=== PATIENT | female | born 1975 | race Caucasian/White ===

== ENCOUNTER → 2019-01-19 | Outpatient (CLI) | payer OTHER ==
[~2019-01-19] MED LIST: CATAPRES-TTS 10.1 MG TD; CELEXA40 MG PO; CLEOCIN HCL300 MG PO; FLEXERIL PO; IBUPROFEN 600600 M1 PO; MELOXICAM7.5 MG; NOHOMEMEDICATIONS; NORCO 5-325 TA1 EACH PO; VICODIN 5-5001 EACH PO
== END ==
LOC: M.RAD 11:40
DX: S09.93XA Unspecified injury of face, initial encounter (principal); Z88.0 Allergy status to penicillin; Z88.8 Allergy status to other drugs, medicaments and biological substances; Z88.2 Allergy status to sulfonamides; Z91.011 Allergy to milk products; Z91.018 Allergy to other foods; X58.XXXA Exposure to other specified factors, initial encounter; Y93.89 Activity, other specified; Y92.89 Other specified places as the place of occurrence of the external cause; Y99.8 Other external cause status

== ENCOUNTER → 2020-11-12 | Outpatient (CLI) | payer OTHER ==
[~2020-11-12] MED LIST changes: +AIMOVIG AU70 MG/1 ML; +ALPRAZOLAM 0.0.25 M1 PO; +AMITRIPTYLINE H75 M2 PO; +BUSPIRONE HCL15 MG PO; +CYMBALTA60 MG PO; +GABAPENTIN600 M1 PO; +IRON PO; +MAGNESIUM PO; +OMEPRAZOLE 20 M20 M1 PO; +SUMATRIPTAN PO; +TOPROL XL25 MG PO; +TRAZODONE PO; +VITAMIN B-125000 MCG SUBLING
== END ==
LOC: M.PC 11:27
PROVIDERS: ATTEND Anesthesiology Pain Medicine
DX: G43.909 Migraine, unspecified, not intractable, without status migrainosus (principal); F41.9 Anxiety disorder, unspecified; F32.9 Major depressive disorder, single episode, unspecified; M79.7 Fibromyalgia; I10 Essential (primary) hypertension; M19.90 Unspecified osteoarthritis, unspecified site

== ENCOUNTER → 2021-02-20 | Outpatient (CLI) | payer OTHER ==
[~2021-02-20] MED LIST changes: +AMITRIPTYLINE100 MG PO; +HYDROCODON-ACE1 EAC7 PO
== END ==
LOC: M.PC 08:30
PROVIDERS: ATTEND Anesthesiology Pain Medicine
DX: S69.91XA Unspecified injury of right wrist, hand and finger(s), initial encounter (principal); G43.909 Migraine, unspecified, not intractable, without status migrainosus; F41.8 Other specified anxiety disorders; M79.7 Fibromyalgia; I10 Essential (primary) hypertension; M19.90 Unspecified osteoarthritis, unspecified site; M25.552 Pain in left hip; M25.551 Pain in right hip; M25.511 Pain in right shoulder; M25.512 Pain in left shoulder; M25.522 Pain in left elbow; M25.521 Pain in right elbow; M79.672 Pain in left foot; M79.671 Pain in right foot; M54.2 Cervicalgia; M54.5 Low back pain; X58.XXXA Exposure to other specified factors, initial encounter; Y93.9 Activity, unspecified; Y92.89 Other specified places as the place of occurrence of the external cause; Y99.8 Other external cause status

== ENCOUNTER → 2021-05-02 | Outpatient (CLI) | payer OTHER | LOC: M.MRI 08:05 | PROVIDERS: ATTEND Nurse Practitioner Family | DX: M79.641 Pain in right hand (principal) ==

== ENCOUNTER → 2021-05-15 | Outpatient (CLI) | payer OTHER | LOC: M.PC 08:13 | PROVIDERS: ATTEND Anesthesiology Pain Medicine | DX: M25.551 Pain in right hip (principal); M25.552 Pain in left hip; M54.2 Cervicalgia; G43.909 Migraine, unspecified, not intractable, without status migrainosus; M79.7 Fibromyalgia; I10 Essential (primary) hypertension; M19.90 Unspecified osteoarthritis, unspecified site; M25.511 Pain in right shoulder; M25.512 Pain in left shoulder; F41.9 Anxiety disorder, unspecified; F34.89 Other specified persistent mood disorders; Z90.49 Acquired absence of other specified parts of digestive tract; Z88.0 Allergy status to penicillin; Z88.8 Allergy status to other drugs, medicaments and biological substances; Z79.899 Other long term (current) drug therapy ==

== ENCOUNTER → 2021-08-07 | Outpatient (CLI) | payer BC | LOC: M.PC 08:13 | PROVIDERS: ATTEND Anesthesiology Pain Medicine | DX: M54.2 Cervicalgia (principal); M54.50 Low back pain, unspecified; G43.909 Migraine, unspecified, not intractable, without status migrainosus; F41.9 Anxiety disorder, unspecified; F34.9 Persistent mood [affective] disorder, unspecified; M79.7 Fibromyalgia; M19.90 Unspecified osteoarthritis, unspecified site; I10 Essential (primary) hypertension; M25.551 Pain in right hip; M25.552 Pain in left hip; M25.511 Pain in right shoulder; M25.512 Pain in left shoulder; M25.541 Pain in joints of right hand; M25.542 Pain in joints of left hand; Z79.899 Other long term (current) drug therapy ==